=== PATIENT | male | born 1970 | race Caucasian/White ===

== ENCOUNTER 2025-09-26 11:13 | Outpatient (OUT) | payer OTHER, SELFPAY ==
--- OUTSIDE RECORDS SUMMARY | 2025-09-26 11:18 | XMS_ITS | Clinical Summary ---
Author Organization [facility] Address [address] [place] [address] Phone Care Team Providers Care Lead Maintenance Technician Name Role Phone Aisha De Anda MD Primary Care Provider [phone] Social History Tobacco UseTypesPacks/DayYears UsedDateSmoking Tobacco: Never AssessedSex and Gender InformationValueDate RecordedSex Assigned at BirthNot on fileLegal Sex Male10/22/2022 12:22 AM ESTGender IdentityNot on fileSexual OrientationNot on file Last Filed Vital Signs Vital SignReadingTime TakenCommentsBlood Pressure--Pulse--Temperature-- Respiratory Rate--Oxygen Saturation--Inhaled Oxygen Concentration--Pkegqs891 kg (234 lb 12.6 oz)05/24/2019 11:01 AM FLBSvzebt996.9 cm (6' 1.98 )05/24/2019 11:01 AM EDTBody Mass Index30.16005/24/2019 11:01 AM EDT Plan of Treatment Not on file Care Teams Team MemberRelationshipSpecialtyStart DateEnd Date Aisha De Anda MD [address] [place] [address] PCP - General05/24/19
--- OUTSIDE RECORDS SUMMARY | 2025-09-26 11:18 | XMS_ITS | Clinical Summary ---
Author Organization [employer] [facility] tem Address [facility] [id number] [address] [place] [address] Care Team Providers Care Vice President Of Nursing Name Role Phone Unavailable Primary Care Provider Unavailabl e Social History Tobacco UseTypesPacks/DayYears UsedDateSmoking Tobacco: Never AssessedChildcare AnswerDate LtiukoftBwdncnnvhVenzehx01/12/2019EmploymentAnswerDate Recorded XvdxqsslffVzvmgth55/12/2019Purpose - LifeAnswerDate RecordedPurpose and direction in nnfnSfxuklh98/11/2021ex and Gender InformationValueDate Recorded Sex Assigned at BirthNot on fileLegal WfbTdhw3907/02/2015 12:10 PM EDTGender IdentityNot on fileSexual OrientationNot on file Plan of Treatment Health MaintenanceDue DateLast DoneCommentsDepression Xsnhnmxlr21/04/1982Tobacco Kozecjcut51/04/1982Adult BMI Fypvtpfzo44/04/1988DTaP,Tdap and Td Vaccines (1 - Tdap)1989Zoster (Shingles) Vaccine (1 of 2)2020Influenza Vaccine 07/28/2025 Medical Devices Not on file Insurance
--- OUTSIDE RECORDS SUMMARY | 2025-09-26 11:18 | XMS_ITS | Clinical Summary ---
Author Organization [facility] Address [address] [place] [address] Care Team Providers Care Program Support Specialist Name Role Phone Unavailable Primary Care Provider Unavailabl e Social History Tobacco UseTypesPacks/DayYears UsedDateSmoking Tobacco: Never AssessedSex and Gender InformationValueDate RecordedSex Assigned at BirthNot on fileLegal Sex Male05/26/2022 12:14 AM EDTGender IdentityNot on fileSexual OrientationNot on file Last Filed Vital Signs Vital SignReadingTime TakenCommentsBlood Cjbtwtak333/67006/17/2020 2:00 PM EDT Xkgtu821006/17/2020 2:00 PM EDTTemperature--Respiratory Rate--Oxygen Zagruhbqrr11% 10/16/2019 1:47 PM ESTInhaled Oxygen Concentration--Enhqzt391 kg (235 lb) 06/17/2020 1:57 PM YBHTbtbuc679 cm (6' 2 )06/17/2020 1:57 PM EDTBody Mass Index 30.17006/17/2020 1:57 PM EDT Plan of Treatment Not on file
--- OUTSIDE RECORDS SUMMARY | 2025-09-26 11:18 | XMS_ITS | Clinical Summary ---
Author Organization [facility] Address [address] [place] [address] Care Team Providers Care Applications Instructor Name Role Phone Aisha De Anda MD Primary Care Provider [phone] Johanna Robison ORANGE GROWER-DEPUTY SHERIFF BUILDING GUARD Unavailable Allergies Active AllergyReactionsCriticalityNoted GekcFuqbaponOqioqjhzkpzZmowLhn09/27/2023 Medications MedicationSigDispense QuantityRefillsLast FilledStart DateEnd DateStatus finasteride (Proscar) 5 MG tablet Take 5 mg by mouth DailyActive omeprazole OTC (PriLOSEC OTC) 20 MG EC tablet Take 20 mg by mouth in the morning. Take before meals.Active cholecalciferol (Vitamin D-3) 125 MCG (5000 UT) capsule Take 125 mcg by mouth03/14/2023ctive losartan (Cozaar) 100 MG tablet Take 100 mg by mouth Daily03/16/2023ctive ALPRAZolam (Xanax) 0.5 MG tablet Indications:AnxietyTake 1 tablet (0.5 mg) by mouth 2 (two) times a day as needed for anxiety Use 30min before flight 10 tablet 02/07/2024ctive atorvastatin (Lipitor) 40 MG tablet Take 40 mg by mouth Daily04/09/2024ctive Magnesium Glycinate 100 MG capsule Take 1 capsule by mouth DailyActive zinc 30 MG tablet Take 1 tablet by mouth DailyActive b complex vitamins capsule Take 1 capsule by mouth DailyActive PARoxetine (Paxil) 10 MG tablet Indications:Major depression, recurrent, chronic,Social anxiety disorderTake 1 tablet (10 mg) by mouth in the morning. 90 tablet 5Active Brexpiprazole (Rexulti) 2 MG tablet Indications:Major depression, recurrent, chronicTake 2 mg by mouth Daily 30 tablet 515Active lamoTRIgine (LaMICtal) 200 MG tablet Indications:Major depression, recurrent, chronicTake 1 tablet (200 mg) by mouth Daily 90 tablet 506Active PARoxetine (Paxil) 40 MG tablet Indications:Major depression, recurrent, chronic,Social anxiety disorderTake 1 tablet (40 mg) by mouth in the morning. 90 tablet 5Active Active Problems ProblemNoted DateDiagnosed DateAlcohol abuse, in tmsvstlab83/27/2023Recurrent major depressive /27/2023Panic disorder with wlnrxnzluxv25/27/2023 Social anxiety vrpxqivm66/27/2023Tarsal coalition of right foot04/22/2023Tarsal tunnel syndrome of right side04/22/20236956Zsmgswfflnkvzcx32/27/2023Pain in right ankle and joints of right foot04/22/2023Multiple thyroid eggivpo6104/22/2023 Congenital forefoot bslzng163Cavovarus deformity of foot04/22/2023 Acquired cavovarus deformity of right foot04/22/2023 Encounters DateTypeDepartmentCare TjnjJsvtugqrnxp29/02/2025 11:30 AM EDTOffice Visit [facility] [address] [facility] [address] [place] [phone] Johanna Robison ORANGE GR[employer]-DEPUTY SHERIFF BUILDING GUARD Major depression, recurrent, chronic ; Social anxiety ywzydbub06/02/2025amboo flowsheet [facility] [address] [facility] [address] [place] [phone] Johanna Robison APRN-DEPUTY SHERIFF BUILDING GUARD 07/29/20256325Oadvvw77/22/2025Refill [facility] [address] [facility] [address] [place] [id number] Mary-Nossek, Johanna M, ORANGE [employer]-DEPUTY SHERIFF BUILDING GUARD Major depression, recurrent, chronicfrom Last 3 Months Family History Medical HistoryRelationNameCommentsAlcohol abuseFatherFlemingCancerFatherFleming Physical abuseFatherFlemingBipolar disorderMaternal GrandfatherWalterMental illnessMaternal GrandfatherWalterAlcohol abusePaternal GrandfatherFlemingHeart diseasePaternal GrandfatherFlemingRelationNameStatusCommentsFatherFleming Maternal GrandfatherWalterPaternal GrandfatherFleming Social History Tobacco UseTypesPacks/DayYears UsedDateSmoking Tobacco: Every DayCigarettes Smokeless Tobacco: Never Tobacco Cessation:Ready to Q uit: Not Asked; Counseling Given: Yes Alcohol UseStandard Drinks/WeekCommentsNot Currently0 (1 standard drink = 0.6 oz pure alcohol)3-4 cups coffeePHQ-2AnswerDate RecordedPatient Health Questionnaire-2 Xxrpp655EducationAnswerDate RecordedWhat is the highest level of school you have completed or the highest degree you have received?High school unodcyyd58/22/2025Sex and Gender InformationValueDate RecordedSex Assigned at BirthNot on fileLegal CqaPvdd9502/08/2023 7:22 PM EDTGender Identity Male02/08/2023 7:22 PM EDTSexual OrientationNot on fileOccupationIndustryJob Start DateJob End DateNot on fileNot on fileNot on fileNot on file Last Filed Vital Signs Vital SignReadingTime TakenCommentsBlood Pizclfoh536/8809 11:30 AM EDT Xecaf120707/29/2025 11:30 AM EDTTemperature--Respiratory Nipz3089 10:44 AM EDTOxygen Saturation--Inhaled Oxygen Concentration--Judzho237 kg (258 lb) 07/29/2025 11:30 AM PADZlemxh001.4 cm (6' 1 )06/05/2025 10:44 AM EDTBody Mass Index34.04006/05/2025 10:44 AM EDT Plan of Treatment DateTypeDepartmentCare Team (Latest Contact Info)Suxxbwvggko59/11/2025 10:30 AM ESTOffice Visit [facility] [address] [place] [address] Johanna Robison, OR[employer]-DEPUTY SHERIFF BUILDING GUARD [address] [place] [address] [place] [address] Health MaintenanceDue DateLast DoneCommentsCT Jkqmfgxbgevq1970Colonoscopy 1970Colorectal Cancer Lzokzpvdx1970FIT-DNA1970FIT1970 FOBT06/30/19700576Hfihwrtsnkmfo1970Influenza Vaccine (#1)510/, 09/14/2023, 09/21/2022, Additional history exists Insurance Care Teams Team MemberRelationshipSpecialtyStart DateEnd Aisha De Anda MD [address] [facility] [place] [place] [address] PCP - GeneralFamily Medicine05/10/23 Johanna Robison, [employer]DEPUTY SHERIFF BUILDING GUARD [address] [place] [address] [place] [address] Nurse PractitionerBehavioral Health05/10/23
[2025-09-26 13:00] LABS: Prostate Specific Antigen Dx 0.42 ng/mL (<=4.00)
== END 2025-09-26 11:14 | disposition home or self-care (01) ==
LOC: LAB 11:16
PROVIDERS: Visit Provider Student in an Organized Health Care Education/Training Program
DX: N40.1 Benign prostatic hyperplasia with lower urinary tract symptoms (principal)
CPT/HCPCS: 36415; 84153

== ENCOUNTER 2025-10-29 09:22 | Outpatient (OUT) | payer OTHER, SELFPAY ==
--- OUTSIDE RECORDS SUMMARY | 2025-10-29 09:24 | XMS_ITS | Clinical Summary ---
Author Organization [facility] Address [address] [place] [address] Care Team Providers Care Executive Chef Assistant Name Role Phone Unavailable Primary Care Provider Unavailabl e Social History Tobacco UseTypesPacks/DayYears UsedDateSmoking Tobacco: Never AssessedSex and Gender InformationValueDate RecordedSex Assigned at BirthNot on fileLegal Sex Male05/26/2022 12:14 AM EDTGender IdentityNot on fileSexual OrientationNot on file Last Filed Vital Signs Vital SignReadingTime TakenCommentsBlood Gaetsyxa278/67006/17/2020 2:00 PM EDT Szmhj595506/17/2020 2:00 PM EDTTemperature--Respiratory Rate--Oxygen Cfahoqycvv19% 10/16/2019 1:47 PM ESTInhaled Oxygen Concentration--Nbasuo814 kg (235 lb) 06/17/2020 1:57 PM GGIKstyxc714 cm (6' 2 )06/17/2020 1:57 PM EDTBody Mass Index 30.17006/17/2020 1:57 PM EDT Plan of Treatment Not on file
--- OUTSIDE RECORDS SUMMARY | 2025-10-29 09:24 | XMS_ITS | Clinical Summary ---
Author Organization [facility] Address [address] [place] [address] Care Team Providers Care Wet Process Miller Head Name Role Phone Aisha De Anda MD Primary Care Provider [phone] Johanna Robison IP PARALEGAL-SENIOR PHYSICAL THERAPIST Unavailable Allergies Active AllergyReactionsCriticalityNoted NchmDtjlywrzDjuttzzupezPuijWur63/27/2023 Medications MedicationSigDispense QuantityRefillsLast FilledStart DateEnd DateStatus finasteride (Proscar) 5 MG tablet Take 5 mg by mouth DailyActive omeprazole OTC (PriLOSEC OTC) 20 MG EC tablet Take 20 mg by mouth in the morning. Take before meals.Active cholecalciferol (Vitamin D-3) 125 MCG (5000 UT) capsule Take 125 mcg by mouth03/14/2023ctive losartan (Cozaar) 100 MG tablet Take 100 mg by mouth Daily03/16/2023ctive atorvastatin (Lipitor) 40 MG tablet Take 40 mg by mouth Daily04/09/2024ctive Magnesium Glycinate 100 MG capsule Take 1 capsule by mouth DailyActive zinc 30 MG tablet Take 1 tablet by mouth DailyActive b complex vitamins capsule Take 1 capsule by mouth DailyActive Brexpiprazole (Rexulti) 2 MG tablet Indications:Major depression, recurrent, chronicTake 2 mg by mouth Daily 30 tablet 5Active lamoTRIgine (LaMICtal) 200 MG tablet Indications:Major depression, recurrent, chronicTake 1 tablet (200 mg) by mouth Daily 90 tablet ctive PARoxetine (Paxil) 10 MG tablet Indications:Major depression, recurrent, chronic,Social anxiety disorderTake 1 tablet (10 mg) by mouth in the morning. 90 tablet /6Active PARoxetine (Paxil) 40 MG tablet Indications:Major depression, recurrent, chronic,Social anxiety disorderTake 1 tablet (40 mg) by mouth in the morning. 90 tablet ctive ALPRAZolam (Xanax) 0.5 MG tablet Indications:AnxietyTake 1 tablet (0.5 mg) by mouth 2 (two) times a day as needed for anxiety Use 30min before flight 10 tablet Discontinued PARoxetine (Paxil) 10 MG tablet Indications:Major depression, recurrent, chronic,Social anxiety disorderTake 1 tablet (10 mg) by mouth in the morning. 90 tablet Discontinued(Reorder) PARoxetine (Paxil) 40 MG tablet Indications:Major depression, recurrent, chronic,Social anxiety disorderTake 1 tablet (40 mg) by mouth in the morning. 90 tablet Discontinued(Reorder) Active Problems ProblemNoted DateDiagnosed DateAlcohol abuse, in gcyszwlus64/27/2023Recurrent major depressive pvisyvyl35/27/2023anic disorder with nrbdargbmeq86/27/2023 Social anxiety meqkmlwz23/27/2023Tarsal coalition of right foot04/22/2023Tarsal tunnel syndrome of right side04/22/20239392Sfhzbpyeneutfwx99/27/2023ain in right ankle and joints of right foot04/22/2023Multiple thyroid peaybbk7704/22/2023 Congenital forefoot rykehx1504/22/2023avovarus deformity of foot04/22/2023 Acquired cavovarus deformity of right foot04/22/2023 Encounters DateTypeDepartmentCare FzwrGkxhyysaxul11/11/2025 9:00 AM ESTOffice Visit [facility] [address] [place] [address] Mary-Johanna Ni, IP PARALEGAL-SENIOR PHYSICAL THERAPIST Major depression, recurrent, chronic; Social anxiety /11/2025amboo flowsheet [facility] [place] [facility] [address] [place] [address] Johanna Robison, IP PARALEGAL-SENIOR PHYSICAL THERAPIST 10/07/2025Travelfrom Last 3 Months Family History Medical HistoryRelationNameCommentsAlcohol abuseFatherFlemingCancerFatherFleming Physical abuseFatherFlemingBipolar disorderMaternal GrandfatherWalterMental illnessMaternal GrandfatherWalterAlcohol abusePaternal GrandfatherFlemingHeart diseasePaternal GrandfatherFlemingRelationNameStatusCommentsFatherFleming Maternal GrandfatherWalterPaternal GrandfatherFleming Social History Tobacco UseTypesPacks/DayYears UsedDateSmoking Tobacco: Every DayCigarettes Smokeless Tobacco: Never Tobacco Cessation:Ready to Q uit: Not Asked; Counseling Given: Yes Alcohol UseStandard Drinks/WeekCommentsNot Currently0 (1 standard drink = 0.6 oz pure alcohol)3-4 cups coffeePHQ-2AnswerDate RecordedPatient Health Questionnaire-2 Ophps285EducationAnswerDate RecordedWhat is the highest level of school you have completed or the highest degree you have received?High school isffwcrh31/22/2025Sex and Gender InformationValueDate RecordedSex Assigned at BirthNot on fileLegal QzmTpia9802/08/2023 7:22 PM EDTGender Identity Male02/08/2023 7:22 PM EDTSexual OrientationNot on fileOccupationIndustryJob Start DateJob End DateNot on fileNot on fileNot on fileNot on file Last Filed Vital Signs Vital SignReadingTime TakenCommentsBlood Pblnedfq218/80112/07/2024 9:01 AM EST Xfyoz397510/07/2025 9:01 AM ESTTemperature--Respiratory Dbwd267906/05/2025 10:44 AM EDTOxygen Saturation--Inhaled Oxygen Concentration--Orlpid793 kg (265 lb) 10/07/2025 9:01 AM IVEGjsfhf993.4 cm (6' 1 )06/05/2025 10:44 AM EDTBody Mass Index34.9607 10:44 AM EDT Plan of Treatment DateTypeDepartmentCare Team (Latest Contact Info)Ttjgpjedyny99/20/2026 9:00 AM ESTOffice Visit [facility] [address] [facility] [address] [place] [address] Johanna Robison, IP PARALEGAL-SENIOR PHYSICAL THERAPIST [address] [facility] [address] [place] [address] Health MaintenanceDue DateLast DoneCommentsCT Igptqhrhahcw1970Colonoscopy 1970Colorectal Cancer Gmixcnroa1970FIT-DNA1970FIT1970 FOBT06/30/19706927Bclitiocmnwdo1970COVID-19 Vaccine (2024- season) 6112/08/2024, 09/20/2024, 09/14/2023, Additional history existsInfluenza ZqffkzxQjbqdccbz79/12/2025, 09/20/2024, 09/14/2023, Additional history exists Pneumococcal Vaccine: Pediatrics (0 to 5 Years) and At-Risk Patients (6 to 64 Years)Aged OutNo longer eligible based on patient's age to complete this topic Insurance * Guarantor: Ulises Wayccbernard TypeRelation to PatientDate of PhoneBilling AddressPersonal/SonbzfZdaa[address] [facility] [place] [address] Care Teams Team MemberRelationshipSpecialtyStart DateEnd Date Aisha De Anda MD [address] [place] [address] PCP - GeneralFamily Medicine05/10/23 Johanna Robison APRN-SENIOR PHYSICAL THERAPIST [address] [address] Nurse PractitionerGood [facility]05/10/23
--- OUTSIDE RECORDS SUMMARY | 2025-10-29 09:24 | XMS_ITS | Clinical Summary ---
Author Organization [facility] Address [address] [place] [address] Phone Care Team Providers Care Gutter Hanger Name Role Phone Aisha De Anda MD Primary Care Provider [phone] Social History Tobacco UseTypesPacks/DayYears UsedDateSmoking Tobacco: Never AssessedSex and Gender InformationValueDate RecordedSex Assigned at BirthNot on fileLegal Sex Male10/22/2022 12:22 AM ESTGender IdentityNot on fileSexual OrientationNot on file Last Filed Vital Signs Vital SignReadingTime TakenCommentsBlood Pressure--Pulse--Temperature-- Respiratory Rate--Oxygen Saturation--Inhaled Oxygen Concentration--Jhyngr659 kg (234 lb 12.6 oz)05/24/2019 11:01 AM CPIZfvbhu751.9 cm (6' 1.98 )05/24/2019 11:01 AM EDTBody Mass Index30.16005/24/2019 11:01 AM EDT Plan of Treatment Not on file Care Teams Team MemberRelationshipSpecialtyStart DateEnd Date Aisha De Anda MD [address] [place] [address] PCP - General05/24/19
--- OUTSIDE RECORDS SUMMARY | 2025-10-29 09:24 | XMS_ITS | Clinical Summary ---
Author Organization [facility] Address [id number] [address] [place] [address] Care Team Providers Care Account Services Specialist Name Role Phone Unavailable Primary Care Provider Unavailabl e Social History Tobacco UseTypesPacks/DayYears UsedDateSmoking Tobacco: Never AssessedChildcare AnswerDate JojwazdkCpvrhknkjRgxudgn75/12/2019EmploymentAnswerDate Recorded BktanhaztoPxzyvcp99/12/2019Purpose - LifeAnswerDate RecordedPurpose and direction in fwcbElkwpcj41/11/2021ex and Gender InformationValueDate Recorded Sex Assigned at BirthNot on fileLegal XddZhcu3307/02/2015 12:10 PM EDTGender IdentityNot on fileSexual OrientationNot on file Plan of Treatment Health MaintenanceDue DateLast DoneCommentsDepression Ljvhhziwr35/04/1982Tobacco Ougztambw73/04/1982Adult BMI Fzavggjbr47/04/1988DTaP,Tdap and Td Vaccines (1 - Tdap)1989Zoster (Shingles) Vaccine (1 of 2)2020Influenza Vaccine 07/28/2025 Medical Devices Not on file Insurance
--- NOTE | 2025-10-29 09:32 | CT_ITS ---
The [address] [address] Patient Name: NEVIN MCDANIEL MRN: [id number] date: 1970 Sex: M Assigned Patient Location: CT Current Patient Location: CT Accession/Order Number: [id number] Exam Date: 10/29/2025 09:35 Report Date: 10/29/2025 10:20 At the request of: EAMON LIM DO, MS Procedure: CT lung screening low-dose LOW-DOSE SCREENING CHEST CT WITHOUT CONTRAST COMPARISON: None CLINICAL DATA: Current smoker with 40 pack year history. Spiral axial unenhanced low-dose images were obtained through the chest. Images were reviewed using both narrow and wide window settings. This CT exam was performed using one or more following dose reduction techniques: Automated exposure control, adjustment of the mA and/or kV according to patient size, or use of iterative reconstruction technique. The heart is within normal limits for size. No pericardial effusion is seen. No aortic aneurysm is present. There are small nonpathologic mediastinal lymph nodes. Mild endplate spurring is noted at the spine. There is mild atelectasis, predominantly dependent. There may also be minimal scarring. No focal consolidation, pleural effusion or pneumothorax is seen. A tiny calcified granuloma is generalized at the right lower lobe. No soft tissue nodularity is identified. Limited imaging through the upper abdomen shows fatty infiltration of the liver. CT/CT lung screening low-dose IMPRESSION: MINOR ATELECTASIS AND SCARRING. NO SUSPICIOUS PULMONARY NODULARITY. Lung RADS category 1 - negative Twelve-month low-dose CT follow-up suggested Impression dictated by: Deborah Morales M.D. 10/29/2025 10:20 AM Dictation Location: [place] [address] Electronically authenticated by: [id number] Y Date: 10/29/2025 10:20
== END 2025-10-29 09:23 | disposition home or self-care (01) ==
LOC: CT 09:22
PROVIDERS: Visit Provider Student in an Organized Health Care Education/Training Program
DX: J98.11 Atelectasis (principal); F17.200 Nicotine dependence, unspecified, uncomplicated; Z12.2 Encounter for screening for malignant neoplasm of respiratory organs
CPT/HCPCS: 71271

== ENCOUNTER 2025-11-17 10:17 | Outpatient (OUT) | payer OTHER, SELFPAY ==
--- OUTSIDE RECORDS SUMMARY | 2025-11-17 10:21 | XMS_ITS | Clinical Summary ---
Author Organization [facility] Address [address] [place] [address] Care Team Providers Care Diamond Powder Mixer Name Role Phone Unavailable Primary Care Provider Unavailabl e Social History Tobacco UseTypesPacks/DayYears UsedDateSmoking Tobacco: Never AssessedSex and Gender InformationValueDate RecordedSex Assigned at BirthNot on fileLegal Sex Male05/26/2022 12:14 AM EDTGender IdentityNot on fileSexual OrientationNot on file Last Filed Vital Signs Vital SignReadingTime TakenCommentsBlood Kztjeqqi986/67006/17/2020 2:00 PM EDT Kqidz333006/17/2020 2:00 PM EDTTemperature--Respiratory Rate--Oxygen Nsndzyohgf14% 10/16/2019 1:47 PM ESTInhaled Oxygen Concentration--Kudqvt869 kg (235 lb) 06/17/2020 1:57 PM QUOYqawgj346 cm (6' 2 )06/17/2020 1:57 PM EDTBody Mass Index 30.17006/17/2020 1:57 PM EDT Plan of Treatment Not on file
--- OUTSIDE RECORDS SUMMARY | 2025-11-17 10:21 | XMS_ITS | Clinical Summary ---
Author Organization [facility] Address [address] [place] [address] Phone Care Team Providers Care Salvationist Name Role Phone Aisha De Anda MD Primary Care Provider [phone] Social History Tobacco UseTypesPacks/DayYears UsedDateSmoking Tobacco: Never AssessedSex and Gender InformationValueDate RecordedSex Assigned at BirthNot on fileLegal Sex Male10/22/2022 12:22 AM ESTGender IdentityNot on fileSexual OrientationNot on file Last Filed Vital Signs Vital SignReadingTime TakenCommentsBlood Pressure--Pulse--Temperature-- Respiratory Rate--Oxygen Saturation--Inhaled Oxygen Concentration--Qeqjeq838 kg (234 lb 12.6 oz)05/24/2019 11:01 AM KUHIxefvh712.9 cm (6' 1.98 )05/24/2019 11:01 AM EDTBody Mass Index30.16005/24/2019 11:01 AM EDT Plan of Treatment Not on file Care Teams Team MemberRelationshipSpecialtyStart DateEnd Date Aisha De Anda MD [address] [place] [address] PCP - General05/24/19
--- OUTSIDE RECORDS SUMMARY | 2025-11-17 10:21 | XMS_ITS | Clinical Summary ---
Author Organization [facility] Address [address] [place] [address] Care Team Providers Care Dater Assembler Name Role Phone Aisha De Anda MD Primary Care Provider [phone] Johanna Robison NURSE RESEARCHER-[facility] Unavailable Allergies Active AllergyReactionsCriticalityNoted FlwvGgabucsdJfkbhqdiqkyLmoxJtg76/27/2023 Medications MedicationSigDispense QuantityRefillsLast FilledStart DateEnd DateStatus finasteride [...] mouth in the morning. 90 tablet ctive PARoxetine (Paxil) 40 MG tablet Indications:Major depression, recurrent, chronic,Social anxiety disorderTake 1 tablet (40 mg) by mouth in the morning. 90 tablet ctive Active Problems ProblemNoted DateDiagnosed DateAlcohol abuse, in fvofyvxsa66/27/2023Recurrent major depressive ixivawnq76/27/2023anic disorder with vfmfhchyvcq21/27/2023 Social anxiety hyxarmtl79/27/2023Tarsal coalition of right foot04/22/2023Tarsal tunnel syndrome of right side04/22/20230006Vwrrzzptnwetbsf55/27/2023ain in right ankle and joints of right foot04/22/2023Multiple thyroid owfldzo4704/22/2023 Congenital forefoot jzitmn0504/22/2023avovarus deformity of foot04/22/2023 Acquired cavovarus deformity of right foot04/22/2023 Encounters DateTypeDepartmentCare UpvlOtwaxzgalzr89/11/2025 9:00 AM ESTOffice Visit [facility] [address] [facility] [address] [place] [address] Johanna Robison, NURSE RESEARCHER-[facility] Major depression, recurrent, chronic; Social anxiety nlwjyxjd25/11/2025amboo flowsheet [facility] [address] [facility] [address] [place] [address] Johanna Robison APRN-[facility] 10/07/2025Travelfrom Last 3 Months Family History Medical HistoryRelationNameCommentsAlcohol abuseFatherFlemingCancerFatherFleming Physical abuseFatherFlemingBipolar disorderMaternal GrandfatherWalterMental illnessMaternal GrandfatherWalterAlcohol abusePaternal GrandfatherFlemingHeart diseasePaternal GrandfatherFlemingRelationNameStatusCommentsFatherFleming Maternal GrandfatherWalterPaternal GrandfatherFleming Social History Tobacco UseTypesPacks/DayYears UsedDateSmoking Tobacco: Every DayCigarettes Smokeless Tobacco: Never Tobacco Cessation:Ready to Q uit: Not Asked; Counseling Given: Yes Alcohol UseStandard Drinks/WeekCommentsNot Currently0 (1 standard drink = 0.6 oz pure alcohol)3-4 cups coffeePHQ-2AnswerDate RecordedPatient Health Questionnaire-2 Iafni789EducationAnswerDate RecordedWhat is the highest level of school you have completed or the highest degree you have received?High school gcrikbqc51/22/2025Sex and Gender InformationValueDate RecordedSex Assigned at BirthNot on fileLegal SyhNjsl1502/08/2023 7:22 PM EDTGender Identity Male02/08/2023 7:22 PM EDTSexual OrientationNot on fileOccupationIndustryJob Start DateJob End DateNot on fileNot on fileNot on fileNot on file Last Filed Vital Signs Vital SignReadingTime TakenCommentsBlood Bhzumdvz504/8011 9:01 AM EST Rpeug483310/07/2025 9:01 AM ESTTemperature--Respiratory Juvr4896 10:44 AM EDTOxygen Saturation--Inhaled Oxygen Concentration--Dvsszo654 kg (265 lb) 10/07/2025 9:01 AM CSEHryydf078.4 cm (6' 1 )06/05/2025 10:44 AM EDTBody Mass Index34.9607 10:44 AM EDT Plan of Treatment DateTypeDepartmentCare Team (Latest Contact Info)Ldddtomwkgv17/20/2026 9:00 AM ESTOffice Visit [facility] [address] [facility] [address] [place] [address] Johanna Robison APRN-[employer] [employer]ER [address] [facility] [address] [place] [address] Health MaintenanceDue DateLast DoneCommentsCT Gnkjhjgjujbl1970Colonoscopy 1970Colorectal Cancer Kwrchjgtj1970FIT-DNA1970FIT1970 FOBT06/30/19703705Ekzrugfdmpsnv1970COVID-19 FlfwxgmUgrylmjjx11/12/2025, 09/20/2024, 09/14/2023, Additional history existsInfluenza VaccineCompleted 10/08/2025, 09/20/2024, 09/14/2023, Additional history existsPneumococcal Vaccine: Pediatrics (0 to 5 Years) and At-Risk Patients (6 to 64 Years)Aged Out No longer eligible based on patient's age to complete this topic Insurance Care Teams Team MemberRelationshipSpecialtyStart DateEnd Date Aisha De Anda MD [address] [facility] [place] [address] PCP - GeneralFamily Medicine05/10/23 Johanna Robison APRN-[facility] GRINDER [address] [facility] [address] [place] [address] Nurse PractitionerBr[facility]05/10/23
--- NOTE | 2025-11-17 10:24 | XR_ITS ---
The [address] [address] Patient Name: NEVIN MCDANIEL MRN: [id number] date: 1970 Sex: M Assigned Patient Location: [facility] Current Patient Location: [facility] Accession/Order Number: [id number] Exam Date: 11/17/2025 10:41 Report Date: 11/17/2025 11:32 At the request of: EAMON LIM DO, MS Procedure: XR knee LT 4V LEFT KNEE - 4 views COMPARISON: None CLINICAL DATA: Left knee pain for the past month. No injury. AP, lateral, internal oblique and patellar views were obtained. The bony structures are osteopenic. There is no acute fracture or dislocation. There is no disproportionate joint space narrowing. No patellar subluxation is seen. There is marginal spurring, greatest at the posterior patella. There is no significant knee effusion or soft tissue swelling. XR/XR knee LT 4V IMPRESSION: DEGENERATIVE CHANGES, DESCRIBED. NO ACUTE BONY FINDINGS. Impression dictated by: Deborah Morales M.D. 11/17/2025 11:32 AM Dictation Location: [employer] Electronically authenticated by: [id number] Y Date: 11/17/2025 11:32
== END 2025-11-17 10:18 | disposition home or self-care (01) ==
LOC: RAD 10:19
PROVIDERS: PCP Student in an Organized Health Care Education/Training Program; Visit Provider Student in an Organized Health Care Education/Training Program
DX: M25.562 Pain in left knee (principal)
CPT/HCPCS: 73564